=== PATIENT | male | born 1990 | race Caucasian/White ===

== ENCOUNTER 2019-12-18 12:48 | Emergency (ER) | payer OTHER ==
[~2019-12-18] VITALS: Ht 198.1 cm; Wt 120.2 kg
[2019-12-18] MEDS ORDERED: VICO10300 PO (17:13)
[2019-12-18] MEDS ORDERED: NORCO 10-325 T1 EACH PO (18:13)
== END 2019-12-18 17:15 | disposition home or self-care (01) ==
LOC: ED 12:48
DX: S22.41XA Multiple fractures of ribs, right side, initial encounter for closed fracture (principal); W19.XXXA Unspecified fall, initial encounter; Y93.89 Activity, other specified; Y92.89 Other specified places as the place of occurrence of the external cause; Y99.8 Other external cause status